=== PATIENT | male | born 1990 | race Caucasian/White ===

== ENCOUNTER 2018-09-16 13:45 | Emergency (ER) | payer MEDICAID ==
[~2018-09-16] VITALS: Ht 188 cm; Wt 189.0 kg
[2018-09-16] MEDS ORDERED: ONDANSETRON ODT 4 MG ONE (14:24)
[2018-09-16] MEDS ORDERED: SODIUM CHLORIDE FLUSH 10ML SYR IVF ONE (14:30)
[2018-09-16] MEDS ORDERED: SODIUM CHLORIDE 0.9% 1,000ML IVBOLUS ONE (14:30)
[2018-09-16] MEDS ORDERED: ONDANSETRON ODT 4 MG PO ONE (14:30)
[2018-09-16] MEDS ORDERED: ONDANSETRON 2MG/ML, 2ML IVPush ONE (14:30)
[2018-09-16 14:58] LABS: BASOPHILS # (AUTO) 0.02 x10^3/uL (0-0.1); BASOPHILS % (AUTO) 0 % (0-1); EOSINOPHILS % (AUTO) 0 % (1-7); LYMPHOCYTES # (AUTO) 0.69 x10^3/uL (1-3.4); LYMPHOCYTES % (AUTO) 5 % (22-44); MD NO; MEAN CORPUSCULAR HEMOGLOBIN 27.4 pg (27.5-34.5); MEAN CORPUSCULAR HGB CONC 32.5 g/dL (33.2-36.2); MEAN CORPUSCULAR VOLUME 84.3 fL (81-97); MEAN PLATELET VOLUME 10.1 fL (7.4-10.4); MONOCYTES # (AUTO) 0.16 x10^3/uL (0.2-0.8); MONOCYTES % (AUTO) 1 % (2-9); NEUTROPHILS # (AUTO) 12.11 x10^3/uL (1.8-6.8); NEUTROPHILS % (AUTO) 93 % (42-75); PLATELET COUNT 332 x10^3/uL (130-400); RED CELL DISTRIBUTION WIDTH 14.4 % (9.4-14.8)
[2018-09-16 15:14] LABS: ALANINE AMINOTRANSFERASE 37 U/L (12-78); ANION GAP 10 mmol/L (5-15); CALCIUM 9.2 mg/dL (8.5-10.1); CHLORIDE 106 mmol/L (98-107); CREATININE 1.12 mg/dL (0.7-1.3)
[2018-09-16 15:16] LABS: ALKALINE PHOSPHATASE 76 U/L (45-117); BILIRUBIN,TOTAL 0.5 mg/dL (0.2-1.0); TOTAL PROTEIN 9.2 g/dL (6.4-8.2)
--- NOTE | 2018-09-16 15:44 | NUR ---
PT TO ROOM AT THIS TIME
[2018-09-16] MEDS ORDERED: ONDANSETRON 2MG/ML, 2ML ONE (16:28)
[2018-09-16] MEDS ORDERED: PROMETHAZINE 25 MG/ML, 1ML ONE (16:28)
[2018-09-16] MEDS ORDERED: DICYCLOMINE 10 MG/ML, 2ML ONE (16:29)
[2018-09-16] MEDS ORDERED: MORPHINE SULFATE 4 MG/ML, 1ML ONE (16:29)
[2018-09-16] MEDS ORDERED: morphine SULFATE 10 MG/ML, 1ML IVPush ONE (16:30)
[2018-09-16] MEDS ORDERED: DICYCLOMINE 10 MG/ML, 2ML IM ONE (16:30)
[2018-09-16] MEDS ORDERED: PROMETHAZINE 25 MG/ML, 1ML IM ONE (16:30)
--- NOTE | 2018-09-16 16:38 | NUR ---
PATIENT GIVEN MORPHINE, ZOFRAN, BENTYL AND PHERGAN HELD. PATIENT REPORTS THAT NASUEA HAS IMPROVED.
[2018-09-16] MEDS ORDERED: MAALOX/HYOSCYAMINE/LIDOCAINE 45 ML BTL ONE (17:58)
[2018-09-16 18:00] VITALS: BP 166/104
[2018-09-16] MEDS ORDERED: MAALOX/HYOSCYAMINE/LIDOCAINE 45 ML BTL PO ONE (18:00)
--- NOTE | 2018-09-16 18:03 | NUR ---
800 ML URINE OUTPUT
== END 2018-09-16 18:30 | disposition home or self-care (01) ==
LOC: ED 18:23
DX: G89.29 Other chronic pain (principal); R11.2 Nausea with vomiting, unspecified; R10.13 Epigastric pain; R10.11 Right upper quadrant pain
CPT/HCPCS: 36415; 76700; 80053; 83690; 85025; 96361; 96372; 96374; 96375; 99284; J0500; J2270; J2405; J2550; J7030; Q0162